=== PATIENT | female | born 1955 | race Hispanic/Latino ===

== ENCOUNTER → 2020-09-07 | Outpatient (CLI) | payer OTHER | END | disposition home or self-care (01) | LOC: RAH 10:47 | PROVIDERS: ATTEND Family Medicine | DX: R18.8 Other ascites (principal); Z90.49 Acquired absence of other specified parts of digestive tract | CPT/HCPCS: 76700; 76856 ==

== ENCOUNTER 2020-10-11 13:32 | Observation (INO) | payer OTHER ==
[~2020-10-11] VITALS: Ht 154.9 cm; Wt 74.4 kg
[2020-10-11 14:50] LABS: BASOPHILS % (AUTO) 0.6 % (0.0-5.0); EOSINOPHILS % (AUTO) 2.9 % (0.0-8.0); HEMATOCRIT 30.6 % (36-48); MEAN CORPUSCULAR HEMOGLOBIN 21.6 pg (27.0-33.0); MEAN CORPUSCULAR HGB CONC 27.1 g/dL (32.0-36.0); MEAN CORPUSCULAR VOLUME 79.7 fL (79-99); MONOCYTES % (AUTO) 5.8 % (3.0-13.0); NEUTROPHILS % (AUTO) 51.4 % (40.0-77.0); PLATELET COUNT (AUTO) 485 K/uL (130-400); RED BLOOD CELL COUNT(AUTO) 3.84 MIL/uL (4.00-5.50); RED CELL DISTRIBUTION WIDTH 19.9 % (11.0-15.5); WHITE BLOOD COUNT (AUTO) 7.9 K/uL (4.8-10.8)
[2020-10-11 15:03] LABS: INR 1.12 (0.85-1.15); PROTHROMBIN TIME 12.1 SEC (9.6-11.6)
[2020-10-11 15:04] LABS: PARTIAL THROMBOPLASTIN TIME 27.9 SEC (26.3-35.5); POTASSIUM 3.4 mmol/L (3.5-5.1)
[2020-10-11 15:06] LABS: ALBUMIN 2.3 g/dL (3.5-5.0); BILIRUBIN,TOTAL 0.2 mg/dL (0.2-1.0); TOTAL PROTEIN, SERUM 8.1 g/dL (6.0-8.3)
[2020-10-11] MEDS ORDERED: IOHEXOL-350 75 ML VIAL IV ONE (15:44)
[2020-10-11] MEDS ORDERED: MORPHINE SULFATE 2 MG/ML 1ML SYG IV PRN (18:45)
[2020-10-11] MEDS ORDERED: ONDANSETRON HCL 4 MG/2 ML VIAL IV PRN (18:45)
[2020-10-11] MEDS: SODIUM CHLORIDE 0.9% 1000ML 1,000 ML IV SCH (18:45)
[2020-10-11] MEDS ORDERED: DiphenhydrAMINE HCL 50 MG/ML VIAL IV PRN (18:45)
[2020-10-11] MEDS ORDERED: ZOLPIDEM TARTRATE 5 MG TAB PO PRN (18:45)
[2020-10-11] MEDS ORDERED: ACETAMINOPHEN 325 MG TAB PO PRN ×2 (18:45)
[2020-10-11] MEDS ORDERED: HYDROMORPHONE HCL 0.5 MG/0.5 ML ML IV PRN (19:15)
[2020-10-11] MEDS: KETOROLAC TROMETHAMINE 15MG/ML IM SCH (20:30)
[2020-10-11 22:00] LABS: APPEARANCE,URINE Clear (CLEAR); BILIRUBIN,URINE Negative (NEGATIVE); COLOR,URINE Yellow (YELLOW); GLUCOSE, URINE (UA) Negative (NEGATIVE); KETONES,URINE Negative (NEGATIVE); LEUKOCYTE ESTERASE ,URINE Negative (NEGATIVE); NITRATE,URINE Negative (NEGATIVE); OCCULT BLOOD,URINE Negative (NEGATIVE); PROTEIN,URINE Negative (NEGATIVE)
[2020-10-11 22:10] LABS: RBC,URINE 0-1 /HPF (0-1); WBC,URINE 0-1 /HPF (0-1)
[2020-10-11 22:12] LABS: BACTERIA,URINE Rare /HPF (None Seen); MUCUS,URINE Rare LPF (None Seen); SQUAMOUS EPITHELIAL CELL,UR Few /HPF (0-2)
[2020-10-12] VITALS (10 sets, daily range): BP systolic 121–148; BP diastolic 55–95
[2020-10-12] MEDS: FAMOTIDINE/PF 20 MG/2 ML VIAL IV SCH ×3 (01:28→20:15)
[2020-10-12] MEDS: KETOROLAC TROMETHAMINE 15MG/ML IM SCH ×4 (02:30→20:15)
[2020-10-12 03:18] LABS: BASOPHILS % (AUTO) 0.9 % (0.0-5.0); EOSINOPHILS % (AUTO) 4.9 % (0.0-8.0); HEMATOCRIT 25.9 % (36-48); MEAN CORPUSCULAR HEMOGLOBIN 22.4 pg (27.0-33.0); MEAN CORPUSCULAR HGB CONC 28.6 g/dL (32.0-36.0); MEAN CORPUSCULAR VOLUME 78.2 fL (79-99); MONOCYTES % (AUTO) 6.3 % (3.0-13.0); NEUTROPHILS % (AUTO) 53.7 % (40.0-77.0); PLATELET COUNT (AUTO) 383 K/uL (130-400); RED BLOOD CELL COUNT(AUTO) 3.31 MIL/uL (4.00-5.50); RED CELL DISTRIBUTION WIDTH 19.6 % (11.0-15.5); WHITE BLOOD COUNT (AUTO) 5.7 K/uL (4.8-10.8)
[2020-10-12 03:26] LABS: ALBUMIN 1.8 g/dL (3.5-5.0); BILIRUBIN,TOTAL 0.2 mg/dL (0.2-1.0); CREATININE 0.9 mg/dL (0.5-1.5); POTASSIUM 3.9 mmol/L (3.5-5.1); TOTAL PROTEIN, SERUM 6.6 g/dL (6.0-8.3)
[2020-10-12] MEDS: SODIUM CHLORIDE 0.9% 1000ML 1,000 ML IV SCH ×2 (04:45→14:44)
[2020-10-12] MEDS: INSULIN HUMULIN R 100 UNIT/ML 3ML SQ SCH ×5 (06:00→21:59)
[2020-10-12] MEDS ORDERED: HYDRALAZINE HCL 10 MG TABLET PO PRN (09:15)
[2020-10-12] MEDS ORDERED: ALBUMIN (HUMAN) 25% 100 ML IV PRN (15:45)
[2020-10-12] MEDS ORDERED: ALBUMIN (HUMAN) 25% 100 ML IV ONE (16:00)
[2020-10-12 16:47] LABS: ALBUMIN,BODY FLUID 1.6 g/dL
[2020-10-12] MEDS: PHARMACY COMMUNICATION MISC SCH ×6 (18:19→23:47)
[2020-10-12 18:34] LABS: APPEARANCE BODY FLUID SLIGHTLY CLOUDY (CLEAR); COLOR,BODY FLUID YELLOW (LT YELLOW); SPECIMENTYPE,BODY FLUID ASCITES; TOTAL VOLUME,BODY FLUID 9500 mL
[2020-10-12 18:35] LABS: BODY FLUID RBC 305 /cu. mm.; BODY FLUID WBC 73 /cu. mm.
[2020-10-12 18:37] LABS: BF EOSINOPHIL 1 %; BF LYMPHOCYTE 48 %; BF MESOTHELIAL 24 %; BF MONOCYTE 2 %
[2020-10-13] MEDS: PHARMACY COMMUNICATION MISC SCH ×3 (01:41→10:00)
[2020-10-13] MEDS: INSULIN HUMULIN R 100 UNIT/ML 3ML SQ SCH (01:41)
[2020-10-13] MEDS: SODIUM CHLORIDE 0.9% 1000ML 1,000 ML IV SCH (03:40)
[2020-10-13] MEDS: KETOROLAC TROMETHAMINE 15MG/ML IM SCH ×3 (03:41→16:57)
[2020-10-13 03:46] VITALS: BP 121/59
[2020-10-13 05:54] LABS: HEMATOCRIT 28.2 % (36-48); MEAN CORPUSCULAR HEMOGLOBIN 22.3 pg (27.0-33.0); MEAN CORPUSCULAR VOLUME 79.4 fL (79-99); RED BLOOD CELL COUNT(AUTO) 3.55 MIL/uL (4.00-5.50); RED CELL DISTRIBUTION WIDTH 19.6 % (11.0-15.5); WHITE BLOOD COUNT (AUTO) 6.1 K/uL (4.8-10.8)
[2020-10-13 06:07] LABS: CREATININE 0.8 mg/dL (0.5-1.5); MAGNESIUM 1.7 mg/dL (1.80-2.40); POTASSIUM 3.6 mmol/L (3.5-5.1)
[2020-10-13 08:22] VITALS: BP 133/62
[2020-10-13] MEDS: FAMOTIDINE/PF 20 MG/2 ML VIAL IV SCH (11:07)
[2020-10-13 11:46] VITALS: BP 128/56
[2020-10-13 16:32] VITALS: BP 127/47
== END 2020-10-13 18:40 | disposition home or self-care (01) ==
LOC: EDH 13:32 → EDHIP 18:29 → 3CH 23:23
PROVIDERS: ADMIT Internal Medicine Critical Care Medicine; ATTEND Internal Medicine Critical Care Medicine
DX: R18.8 Other ascites (principal); C56.9 Malignant neoplasm of unspecified ovary; C78.6 Secondary malignant neoplasm of retroperitoneum and peritoneum; D64.9 Anemia, unspecified; E43 Unspecified severe protein-calorie malnutrition; I10 Essential (primary) hypertension; E66.9 Obesity, unspecified; R63.4 Abnormal weight loss; Z87.891 Personal history of nicotine dependence; Z90.49 Acquired absence of other specified parts of digestive tract; Z79.899 Other long term (current) drug therapy; Z68.31 Body mass index [BMI] 31.0-31.9, adult
CPT/HCPCS: 36415 ×3; 49083; 74177; 80048; 80053 ×2; 81001; 82042; 82948 ×5; 83690; 83735; 85025 ×2; 85027; 85610; 85730; 86304; 86900; 86901; 89051; 96361 ×2; 96365; 96366; 96372 ×2; 96375; 96376 ×2; 99285; A4215; G0378 ×47; J1170; J1885 ×7; J3490 ×4; P9046; Q9967

== ENCOUNTER → 2022-05-10 | Outpatient (CLI) | payer OTHER ==
[~2022-05-10] VITALS: Ht 152.4 cm; Wt 62.8 kg
[2022-05-10 12:54] LABS: INR 0.98 (0.85-1.15); PROTHROMBIN TIME 10.7 SEC (9.6-11.6)
[2022-05-10 12:55] LABS: PARTIAL THROMBOPLASTIN TIME 22.8 SEC (26.3-35.5)
[2022-05-10 13:11] LABS: CREATININE 1.2 mg/dL (0.5-1.5)
[2022-05-10 13:17] LABS: POTASSIUM 2.7 mmol/L (3.5-5.1)
[2022-05-10 13:27] VITALS: BP 136/70
== END | disposition home or self-care (01) ==
LOC: EDSTATUS 11:00 → DAH 11:37
PROVIDERS: ATTEND Surgery
DX: Z01.812 Encounter for preprocedural laboratory examination (principal); K94.20 Gastrostomy complication, unspecified; Z86.2 Personal history of diseases of the blood and blood-forming organs and certain disorders involving the immune mechanism
CPT/HCPCS: 36415; 80048; 85610; 85730

== ENCOUNTER → 2023-07-26 | Outpatient (CLI) | payer OTHER ==
[~2023-07-26] MED LIST: POTA40LI17 PO
== END | disposition home or self-care (01) ==
LOC: RAH 10:54
PROVIDERS: ATTEND Family Medicine
DX: M48.56XA Collapsed vertebra, not elsewhere classified, lumbar region, initial encounter for fracture (principal); M43.8X6 Other specified deforming dorsopathies, lumbar region; M47.816 Spondylosis without myelopathy or radiculopathy, lumbar region; D39.8 Neoplasm of uncertain behavior of other specified female genital organs; M81.0 Age-related osteoporosis without current pathological fracture; G62.2 Polyneuropathy due to other toxic agents
CPT/HCPCS: 72100; 72170; 73521

== ENCOUNTER 2023-10-15 17:24 | Emergency (ER) | payer OTHER ==
[~2023-10-15] VITALS: Ht 144.8 cm; Wt 67.1 kg
[2023-10-15 17:25] VITALS: BP 150/86; PULSE 90; RESP 18
[2023-10-15] MEDS: MORPHINE 4 MG SYG IVP ONE (18:19)
[2023-10-15] MEDS ORDERED: OCTYL 2-CYANOACRYLATE 1 EACH TP ONE ×3 (19:14→20:55)
[2023-10-15] MEDS ORDERED: FAMO-136 PO (21:10)
[2023-10-15] MEDS ORDERED: IBUP-1493 PO (21:10)
[2023-10-15] MEDS ORDERED: OCTYL 2-CYANOACRYLATE 1 EACH TP SCH (21:30)
== END 2023-10-15 21:44 | disposition home or self-care (01) ==
LOC: EDH 17:24
DX: S82.002A Unspecified fracture of left patella, initial encounter for closed fracture (principal); S01.81XA Laceration without foreign body of other part of head, initial encounter; Z79.899 Other long term (current) drug therapy; Z88.1 Allergy status to other antibiotic agents; W18.39XA Other fall on same level, initial encounter; Y93.89 Activity, other specified; Y92.89 Other specified places as the place of occurrence of the external cause; Y99.8 Other external cause status
CPT/HCPCS: 99285; 70450; 96374; 29505; 73562; 72125; 71250; J2270

== ENCOUNTER → 2023-12-27 | Outpatient (CLI) | payer OTHER ==
[~2023-12-27] MED LIST changes: +FAMO-136 PO; +IBUP-1493 PO; +IOHEXOL-350 75 ML VIAL IV ONE
== END | disposition home or self-care (01) ==
LOC: RAH 09:43
PROVIDERS: ATTEND Obstetrics & Gynecology
DX: C56.9 Malignant neoplasm of unspecified ovary (principal); M48.54XA Collapsed vertebra, not elsewhere classified, thoracic region, initial encounter for fracture; G95.29 Other cord compression; Z90.49 Acquired absence of other specified parts of digestive tract; Z98.890 Other specified postprocedural states
CPT/HCPCS: 71260; 74177; Q9967

== ENCOUNTER → 2024-02-18 | Outpatient (CLI) | payer OTHER ==
[~2024-02-18] MED LIST changes: +IOHEXOL-350 50ML VIAL IV ONE; -IOHEXOL-350 75 ML VIAL IV ONE
== END | disposition home or self-care (01) ==
LOC: RAH 11:28
PROVIDERS: ATTEND Internal Medicine Hematology & Oncology
DX: I25.10 Atherosclerotic heart disease of native coronary artery without angina pectoris (principal); R97.1 Elevated cancer antigen 125 [CA 125]; M47.815 Spondylosis without myelopathy or radiculopathy, thoracolumbar region
CPT/HCPCS: 71270; Q9967

== ENCOUNTER 2024-04-13 12:47 | Inpatient (IN) | payer OTHER ==
[~2024-04-13] VITALS: Ht 152.4 cm; Wt 65.8 kg
[~2024-04-13 12:47] MED LIST changes: -IOHEXOL-350 50ML VIAL IV ONE
[2024-04-13 13:37] LABS: BASOPHILS # (AUTO) 0.01 K/uL (0.00-0.20); BASOPHILS % (AUTO) 0.1 % (0.0-5.0); HEMATOCRIT 43.6 % (36-48); IMMATURE GRANULOCYTE ABSOLUTE 0.01 K/uL (0-1); LYMPHOCYTES # (AUTO) 1.7 K/uL (1.0-4.8); LYMPHOCYTES % (AUTO) 21.3 % (21.0-51.0); MEAN CORPUSCULAR HEMOGLOBIN 33.6 pg (27.0-33.0); MEAN CORPUSCULAR HGB CONC 33.5 g/dL (32.0-36.0); MEAN CORPUSCULAR VOLUME 100.2 fL (79-99); MONOCYTES # (AUTO) 0.6 K/uL (0.1-1.0); NEUTROPHILS # (AUTO) 5.7 K/uL (1.8-7.7); NEUTROPHILS % (AUTO) 71.5 % (40.0-77.0); PLATELET COUNT (AUTO) 323 K/uL (130-400); RED BLOOD CELL COUNT(AUTO) 4.35 MIL/uL (4.00-5.50)
[2024-04-13 13:44] LABS: CREATININE 0.9 mg/dL (0.5-1.0); POTASSIUM 3.9 mmol/L (3.5-5.1)
[2024-04-13 13:50] LABS: ALBUMIN 3.3 g/dL (3.5-5.0); BILIRUBIN,DIRECT 0.2 mg/dL (0.0-0.3); TOTAL PROTEIN, SERUM 8.2 g/dL (6.0-8.3)
[2024-04-13 14:06] LABS: BILIRUBIN,TOTAL 0.7 mg/dL (0.2-1.0)
[2024-04-13] MEDS: PANTOPRAZOLE 40 MG/VIAL IVP ONE (15:58)
[2024-04-13] MEDS: 0.9%NACL 1000ML 1,000 ML IV ONE (15:58)
[2024-04-13 16:38] LABS: APPEARANCE,URINE CLEAR (CLEAR); BACTERIA,URINE FEW /HPF (None Seen); BILIRUBIN,URINE 0.5 mg/dL (NEGATIVE); COLOR,URINE YELLOW (YELLOW); GLUCOSE, URINE (UA) NEGATIVE (NEGATIVE); KETONES,URINE 20 mg/dL (NEGATIVE); LEUKOCYTE ESTERASE ,URINE 25 Leu/uL (NEGATIVE); MUCUS,URINE MANY LPF (None Seen); NITRATE,URINE NEGATIVE (NEGATIVE); OCCULT BLOOD,URINE NEGATIVE (NEGATIVE); PROTEIN,URINE 50 mg/dL (NEGATIVE); SQUAMOUS EPITHELIAL CELL,UR FEW /HPF (0-2); UROBILINOGEN,URINE 6 mg/dL (0.2-1.0)
[2024-04-13] MEDS ORDERED: IOHEXOL-350 75 ML VIAL IV ONE (16:54)
[2024-04-13] MEDS ORDERED: ALBUTEROL 0.083% 2.5 MG/3 ML INH IH PRN (18:30)
[2024-04-13] MEDS ORDERED: DiphenhydrAMINE HCL 50 MG/ML VIAL IV PRN (18:30)
[2024-04-13] MEDS ORDERED: GLUCAGON 1MG KIT 1 MG ML IM PRN (18:30)
[2024-04-13] MEDS ORDERED: acetaMINOPHEN 650 MG SUPPOSITORY RC PRN (18:30)
[2024-04-13] MEDS: hydroMORPHone 0.5 MG SYG (0.5MG/0.5ML) IVP ONE (19:23)
[2024-04-13] MEDS: ZOSYN 3.375GM +NS 50ML IV SCH (19:23)
[2024-04-13] MEDS: 0.9%NACL 1000ML 1,000 ML IV SCH (19:24)
[2024-04-13 20:09] VITALS: PULSE 99; RESP 18; O2SAT 96
[2024-04-13] MEDS ORDERED: MAGN300C PO (21:40)
[2024-04-13] MEDS ORDERED: GABA-529 PO (21:40)
[2024-04-13] MEDS ORDERED: LETR2.5T7 PO (21:40)
[2024-04-13] MEDS: INSULIN humuLIN R 100 UNIT/ML 3ML SQ SCH (22:54)
[2024-04-13 23:10] VITALS: BP 150/74; PULSE 97; RESP 18; TEMP 98.5
[2024-04-14] VITALS (10 sets, daily range): BP systolic 145–152; BP diastolic 62–77; PULSE 74–94; RESP 16–20; TEMP 97.9–98.7; O2SAT 96–98
[2024-04-14] MEDS: ONDANSETRON 4MG INJ IVP PRN (00:08)
[2024-04-14] MEDS: hydroMORPHone 0.5 MG SYG (0.5MG/0.5ML) IVP PRN (00:09)
[2024-04-14 06:18] LABS: CREATININE 0.8 mg/dL (0.5-1.0); MAGNESIUM 1.6 mg/dL (1.80-2.40); PHOSPHORUS 4.2 mg/dL (2.5-4.9); POTASSIUM 4.2 mmol/L (3.5-5.1); THYROID STIMULATING HORMONE 1.48 uIU/mL (0.36-3.74)
[2024-04-14] MEDS: MAGNESIUM 2GM PREMIX 50ML 50 ML IV PRN (06:33)
[2024-04-14 07:40] LABS: BASOPHILS # (AUTO) 0.01 K/uL (0.00-0.20); BASOPHILS % (AUTO) 0.1 % (0.0-5.0); EOSINOPHILS # (AUTO) 0.06 K/uL (0.00-0.70); EOSINOPHILS % (AUTO) 0.8 % (0.0-8.0); HEMATOCRIT 38.1 % (36-48); IMMATURE GRANULOCYTE ABSOLUTE 0.01 K/uL (0-1); LYMPHOCYTES # (AUTO) 1.8 K/uL (1.0-4.8); LYMPHOCYTES % (AUTO) 22.9 % (21.0-51.0); MEAN CORPUSCULAR HEMOGLOBIN 33.3 pg (27.0-33.0); MEAN CORPUSCULAR HGB CONC 32.5 g/dL (32.0-36.0); MEAN CORPUSCULAR VOLUME 102.4 fL (79-99); MONOCYTES # (AUTO) 1.1 K/uL (0.1-1.0); MONOCYTES % (AUTO) 14.5 % (3.0-13.0); NEUTROPHILS # (AUTO) 4.7 K/uL (1.8-7.7); NEUTROPHILS % (AUTO) 61.6 % (40.0-77.0); PLATELET COUNT (AUTO) 316 K/uL (130-400); RED BLOOD CELL COUNT(AUTO) 3.72 MIL/uL (4.00-5.50); RED CELL DISTRIBUTION WIDTH 13.4 % (11.0-15.5); WHITE BLOOD COUNT (AUTO) 7.6 K/uL (4.8-10.8)
[2024-04-15] VITALS (8 sets, daily range): BP systolic 133–159; BP diastolic 51–85; PULSE 64–84; RESP 18–20; TEMP 98–98.9; O2SAT 97
[2024-04-16] VITALS (12 sets, daily range): BP systolic 143–157; BP diastolic 65–80; PULSE 73–87; RESP 18–20; TEMP 98.3–99.3; O2SAT 95–97
[2024-04-16] MEDS: DEXTROSE 50%-WATER 50 ML DISP.SYRIN IV PRN (00:11)
[2024-04-16 05:12] LABS: BASOPHILS # (AUTO) 0.01 K/uL (0.00-0.20); BASOPHILS % (AUTO) 0.2 % (0.0-5.0); EOSINOPHILS # (AUTO) 0.07 K/uL (0.00-0.70); EOSINOPHILS % (AUTO) 1.3 % (0.0-8.0); HEMATOCRIT 34.4 % (36-48); IMMATURE GRANULOCYTE ABSOLUTE 0.01 K/uL (0-1); LYMPHOCYTES # (AUTO) 1.9 K/uL (1.0-4.8); LYMPHOCYTES % (AUTO) 34.8 % (21.0-51.0); MEAN CORPUSCULAR HEMOGLOBIN 33.4 pg (27.0-33.0); MEAN CORPUSCULAR HGB CONC 32.6 g/dL (32.0-36.0); MEAN CORPUSCULAR VOLUME 102.7 fL (79-99); MONOCYTES # (AUTO) 0.6 K/uL (0.1-1.0); MONOCYTES % (AUTO) 10.1 % (3.0-13.0); NEUTROPHILS # (AUTO) 2.9 K/uL (1.8-7.7); NEUTROPHILS % (AUTO) 53.4 % (40.0-77.0); PLATELET COUNT (AUTO) 299 K/uL (130-400); RED BLOOD CELL COUNT(AUTO) 3.35 MIL/uL (4.00-5.50); RED CELL DISTRIBUTION WIDTH 13.1 % (11.0-15.5); WHITE BLOOD COUNT (AUTO) 5.4 K/uL (4.8-10.8)
[2024-04-16 05:31] LABS: ALBUMIN 2.4 g/dL (3.5-5.0); BILIRUBIN,TOTAL 0.5 mg/dL (0.2-1.0); CREATININE 0.8 mg/dL (0.5-1.0)
[2024-04-16] MEDS: POTASSIUM CHLORIDE 10MEQ/100ML 100 ML IV PRN (06:13)
[2024-04-16] MEDS ORDERED: PHARMACY COMMUNICATION MISC SCH ×2 (15:30→16:00)
[2024-04-16] MEDS: DEXTROSE 5 % AND 0.9 % NACL 1,000 ML IV SCH (15:38)
[2024-04-16 15:57] LABS: INR 1.08 (0.85-1.15); PROTHROMBIN TIME 11.6 SEC (9.6-11.6)
[2024-04-16] MEDS ORDERED: CLINIMIX-E4.25%AA/D5+LYT2000ML 2,000 ML IV ONE (16:00)
[2024-04-17] VITALS (9 sets, daily range): BP systolic 137–158; BP diastolic 69–83; PULSE 65–85; RESP 16–20; TEMP 97.9–99.1; O2SAT 94–97
[2024-04-17 05:45] LABS: ALBUMIN 2.5 g/dL (3.5-5.0); BILIRUBIN,TOTAL 0.4 mg/dL (0.2-1.0); CREATININE 0.8 mg/dL (0.5-1.0); MAGNESIUM 1.7 mg/dL (1.80-2.40); TOTAL PROTEIN, SERUM 6.3 g/dL (6.0-8.3)
[2024-04-17 05:52] LABS: POTASSIUM 2.5 mmol/L (3.5-5.1)
[2024-04-17] MEDS: FAT EMULSIONS 20% 250ML 250 ML IV SCH (09:00)
[2024-04-17] MEDS ORDERED: MAGNESIUM 2GM PREMIX 50ML 50 ML IV SCH (10:00)
[2024-04-17] MEDS: M.V.I. IV [ADULT] 10 ML, MULTITRACE-4 ADULT 10ML VIAL 3 ML in CLINIMIX-E 5%AA /D15%W 2... IV NR (18:36)
[2024-04-18] VITALS (7 sets, daily range): BP systolic 131–152; BP diastolic 65–79; PULSE 73–87; RESP 18–20; TEMP 98.4–99; O2SAT 98
[2024-04-18 05:10] LABS: MAGNESIUM 1.6 mg/dL (1.80-2.40); POTASSIUM 3.1 mmol/L (3.5-5.1)
[2024-04-18] MEDS ORDERED: HYDROMORPHONE IV PRN (10:00)
[2024-04-18] MEDS ORDERED: [UNRECOGNIZED DRUG - OTHER] IV PRN (10:00)
[2024-04-18] MEDS: hydroMORPHone 0.5 MG SYG (0.5MG/0.5ML) IV PRN (10:55)
[2024-04-18] MEDS: FAT EMULSIONS 20% 250ML 250 ML IV SCH (11:04)
[2024-04-18] MEDS: M.V.I. IV [ADULT] 10 ML, MULTITRACE-4 ADULT 10ML VIAL 3 ML in CLINIMIX-E 5%AA /D15%W 2... IV ONE (19:35)
[2024-04-19] VITALS: BP 136/78; PULSE 91; RESP 20; TEMP 99
[2024-04-19 04:00] VITALS: BP 133/85; PULSE 94; RESP 20; TEMP 99.1
[2024-04-19 05:03] LABS: BASOPHILS # (AUTO) 0.02 K/uL (0.00-0.20); BASOPHILS % (AUTO) 0.2 % (0.0-5.0); EOSINOPHILS # (AUTO) 0.06 K/uL (0.00-0.70); EOSINOPHILS % (AUTO) 0.6 % (0.0-8.0); IMMATURE GRANULOCYTE ABSOLUTE 0.04 K/uL (0-1); LYMPHOCYTES # (AUTO) 3.3 K/uL (1.0-4.8); LYMPHOCYTES % (AUTO) 32.2 % (21.0-51.0); MEAN CORPUSCULAR HEMOGLOBIN 33.3 pg (27.0-33.0); MEAN CORPUSCULAR HGB CONC 32.6 g/dL (32.0-36.0); MEAN CORPUSCULAR VOLUME 102.4 fL (79-99); MONOCYTES # (AUTO) 0.9 K/uL (0.1-1.0); MONOCYTES % (AUTO) 8.7 % (3.0-13.0); NEUTROPHILS % (AUTO) 57.9 % (40.0-77.0); NUCLEATED RED BLOOD CELLS 0.2 % (0.0-0.19); PLATELET COUNT (AUTO) 329 K/uL (130-400); RED CELL DISTRIBUTION WIDTH 13.2 % (11.0-15.5); WHITE BLOOD COUNT (AUTO) 10.3 K/uL (4.8-10.8)
[2024-04-19 05:27] LABS: ALBUMIN 2.6 g/dL (3.5-5.0); BILIRUBIN,TOTAL 0.3 mg/dL (0.2-1.0); CREATININE 0.9 mg/dL (0.5-1.0); MAGNESIUM 1.8 mg/dL (1.80-2.40); PHOSPHORUS 2.8 mg/dL (2.5-4.9); POTASSIUM 3.1 mmol/L (3.5-5.1); TOTAL PROTEIN, SERUM 7.2 g/dL (6.0-8.3)
[2024-04-19 08:00] VITALS: BP 147/79; PULSE 93; RESP 18; TEMP 98.7
[2024-04-19 08:21] VITALS: O2SAT 94
[2024-04-19] MEDS: ketOROlac 15MG/ML VIAL (15MG/ML) IM PRN (08:21)
== END 2024-04-19 10:00 | disposition short-term general hospital (02) | DRG 390 ==
LOC: EDH 12:47 → EDHIP 18:24 → OBSVTOIN 18:24 → 3CH 23:02
PROVIDERS: ADMIT Internal Medicine; ATTEND Internal Medicine
PROC: 02HV33Z Insertion of Infusion Device into Superior Vena Cava, Percutaneous Approach (ICD-10-PCS; principal; 2024-04-17)
DX: K56.609 Unspecified intestinal obstruction, unspecified as to partial versus complete obstruction (principal); K63.89 Other specified diseases of intestine; G62.9 Polyneuropathy, unspecified; D64.9 Anemia, unspecified; D49.0 Neoplasm of unspecified behavior of digestive system; Z90.710 Acquired absence of both cervix and uterus; Z90.81 Acquired absence of spleen; Z93.3 Colostomy status; Z90.3 Acquired absence of stomach [part of]; Z85.038 Personal history of other malignant neoplasm of large intestine; Z85.43 Personal history of malignant neoplasm of ovary
CPT/HCPCS: 36415; 71045; 74018; 74177; 80048; 80053; 80076; 81001; 82948; 83690; 83735; 84100; 84132; 84443; 84484; 85025; 85610; 93005; C1894; G0378; J1170; J1885; J2405; J2470; J2543; J3475; J3480; J3490; J7030; J7070; Q9967; A4600